=== PATIENT | female | born 1970 | race Caucasian/White ===

== ENCOUNTER 2017-03-01 13:07 | Day surgery (SDC) | payer BC ==
[2017-03-01] VITALS (8 sets, daily range): BP systolic 103–141; BP diastolic 58–104; PULSE 60–98; TEMP 97.8
[~2017-03-01] VITALS: Ht 177.8 cm; Wt 118.1 kg
[2017-03-01] MEDS ORDERED: KEPPRA1000 MG PO (14:22)
[2017-03-01] MEDS ORDERED: DEPAKOTE 250MG250 MG PO (14:23)
[2017-03-01] MEDS ORDERED: DEPAKOTE500 MG PO (14:23)
[2017-03-01] MEDS ORDERED: LIPITOR20 MG PO (14:24)
[2017-03-01] MEDS ORDERED: ZOLOFT 50MG50 MG PO (14:25)
[2017-03-01] MEDS ORDERED: PERCOCET 325 MG1 TA2 PO (14:25)
[2017-03-01] MEDS ORDERED: TOPROL XL 25MG25 MG PO (14:25)
[2017-03-01] MEDS ORDERED: VITAMIN D1000 IU PO (14:26)
[2017-03-01] MEDS ORDERED: MULTIPLE VITAMI1 CAP PO (14:26)
[2017-03-01] MEDS ORDERED: TEGRETOL PO (14:35)
[2017-03-01] MEDS ORDERED: ELIQUIS 5MG PO (14:36)
[2017-03-01 14:55] LABS: POTASSIUM 4.4 mmol/L (3.4-5.0)
[2017-03-01] MEDS ORDERED: RANEXA 500MG T500 MG PO (15:15)
[2017-03-01] MEDS ORDERED: COZAAR100 MG PO (15:16)
[2017-03-01] MEDS ORDERED: IMDUR 30MG30 MG/TAB PO (15:16)
[2017-03-01] MEDS ORDERED: PEPCID40 MG PO (15:17)
[2017-03-01 15:26] LABS: THYROID STIMULATING HORMONE 2.3 uIU/mL (0.465-4.680)
[2017-03-01] MEDS ORDERED: MULTAQ400 MG PO (16:27)
== END 2017-03-01 17:14 | disposition home or self-care (01) ==
LOC: COL.CAR 13:07
PROVIDERS: Internal Medicine Interventional Cardiology
DX: I48.91 Unspecified atrial fibrillation (principal); G47.33 Obstructive sleep apnea (adult) (pediatric); G40.909 Epilepsy, unspecified, not intractable, without status epilepticus
CPT/HCPCS: J2250; J3010; J7030